=== PATIENT | female | born 1985 | race Caucasian/White ===

== ENCOUNTER 2017-08-10 21:16 | Emergency (ER) | payer MEDICAID ==
[2017-08-10 21:23] VITALS: RESP 16; TEMP 99
--- NOTE | 2017-08-10 21:58 | EDPHY ---
H & P Stated Complaint: pt stuck by accupuncture needle of a HIV + pt. 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 There was no bleeding. Patient is unsure of her last tetanus booster. She is right-hand dominant. She has full use of that finger has no complaints of pain. Modifying Factors: Patient washed the area with mild soap and water and applied alcohol. Comment: ROS: see HPI Constitutional: No fever, no chills, no weight loss Eyes: No blurred vision Respiratory: No shortness of breath, no cough Cardiovascular: No chest pain Gastrointestinal: No nausea, no vomiting, no diarrhea Genitourinary: No dysuria Extremities: No myalgias Neurologic: No weakness, no numbness Skin: No rashes Hematologic: No bruising, no bleeding MEDICAL/SURGICAL/SOCIAL HISTORY: Medical history: Generally healthy. Does not take any regular medications. Surgical history: Denies Social history: Employed. CONSTITUTIONAL: Well-appearing adult white female, awake and alert, no obvious distress HEENT: Atraumatic and normocephalic, PERRL, EOMI. Tympanic membranes clear. Oropharynx clear, no exudate and moist pink mucosa. Airway patent. No lymphadenopathy. No meningismus. Cardiovascular: Normal S1/S2, regular rate, regular rhythm, without murmur rub or gallop. PULMONARY/CHEST: Symmetrical and nontender. Clear to auscultation bilaterally. Good air movement. No accessory muscle usage. ABDOMEN: Soft, nondistended, nontender, no rebound, no guarding, no peritoneal signs, no masses or organomegaly. No CVAT. EXTREMITIES: 2/2 pulses, right thumb; no needle insertion site/deformities appreciated. Full range of motion. Good capillary refill. no clubbing, no cyanosis or edema. NEUROLOGICAL: no focal neuro deficits. GCS 15. SKIN: Warm and dry, no erythema. no rash. Good capillary refill. Source: Patient Exam Limitations: No limitations - Personal History LMP (Females 10-55): 15-21 Days Ago Current Tetanus/Diphtheria Vaccine: Unsure Current Tetanus Diphtheria and Acellular Pertussis (TDAP): Unsure - Medical/Surgical History Hx Asthma: No Hx Chronic Respiratory Disease: No Hx Diabetes: No Hx Cardiac Disease: No Hx Renal Disease: No Hx Cirrhosis: No Hx Alcoholism: No Hx HIV/AIDS: No Hx Splenectomy or Spleen Trauma: No Other PMH: NO PMH - Social History Smoking Status: Never smoked Constitutional: Initial Vital Signs Temperature (C) 37.2 C 08/10/17 21:18 Heart Rate 97 08/10/17 21:18 Respiratory Rate 16 08/10/17 21:18 Blood Pressure 133/75 H 08/10/17 21:18 O2 Sat (%) 94 08/10/17 21:18 O2 Delivery Mode Room Air Allergies/Adverse Reactions: No Known Allergies Allergy (Unverified 08/10/17 21:23) Home Medications: Medication Instructions Recorded NK [No Known Home Meds] 08/10/17 Medical Decision Making ED Course/Re-evaluation: HIV, Hep B, Hep C labs ordered Tetanus booster given Wound cleaned again. Advised to follow up with infectious disease clinic. Differential Diagnosis: Differential diagnosis includes but is not limited to contusion, puncture wound , HIV exposure, hepatitis exposure. Departure - Departure Disposition: Home, Routine, Self-Care Clinical Impression: Needlestick injury of finger Qualifiers: Encounter type: initial encounter Qualified Code(s): S61.239A - Puncture wound without foreign body of unspecified finger without damage to nail, initial encounter Condition: Good Instructions: Needle Stick Injuries (ED) Additional Instructions: Please called Infectious Disease Clinic in 1-2 days for follow-up appointment. At which time they will review your lab results and discuss further options if needed. Referrals: Shazia Nichols MD [Medical Doctor] - As per Instructions
[2017-08-10] MEDS ORDERED: TDAP ADULT 0.5 ML INJ (BOOSTRIX) IM ONE (22:00)
[2017-08-10 22:47] VITALS: BP 120/91; PULSE 76; O2SAT 96
[2017-08-10 23:51] LABS: HEPATITIS C ANTIBODY TOTAL NEGATIVE (NEGATIVE); HIV TYPE 1 AND 2 NEGATIVE (NEGATIVE)
== END 2017-08-10 22:46 | disposition home or self-care (01) ==
DX: S61.031A Puncture wound without foreign body of right thumb without damage to nail, initial encounter (principal); W46.0XXA Contact with hypodermic needle, initial encounter; Y92.89 Other specified places as the place of occurrence of the external cause; Y99.0 Civilian activity done for income or pay; Y93.89 Activity, other specified; Z23 Encounter for immunization
CPT/HCPCS: G0472